=== PATIENT | female | born 2000 | race Caucasian/White ===

== ENCOUNTER 2021-10-30 12:34 | Observation (INO) | payer MEDICAID ==
[2021-10-30 13:31] LABS: Appearance CLOUDY (CLEAR); Bacteria RARE /HPF (NEGATIVE); Bilirubin NEGATIVE (NEGATIVE); Blood NEGATIVE Ery/ul (0-5); Epithelial Cells MODERATE /HPF (FEW); Glucose NEGATIVE (NEGATIVE); Ketones NEGATIVE (NEGATIVE); Leukocyte Esterase NEGATIVE (NEGATIVE); Mucus SLIGHT /HPF (NEGATIVE); Nitrite NEGATIVE (NEGATIVE); Protein,Urine Dip NEGATIVE (Negative); RBC 0-2 /HPF (0-2); Specific Gravity 1.021 (1.005-1.025); Urobilinogen NEGATIVE mg/dL (0-1)
[2021-10-30 14:49] VITALS: BP 129/61; PULSE 112
[2021-10-30 15:42] VITALS: O2SAT 97
[2021-10-30 19:33] LABS: Amphetamine,Urine NEGATIVE (NEGATIVE); Barbiturate,Urine NEGATIVE (NEGATIVE); Benzodiazepine,Urine NEGATIVE (NEGATIVE); Cocaine,Urine NEGATIVE (NEGATIVE); Methadone,Urine NEGATIVE (NEGATIVE); Opiate,Urine NEGATIVE (NEGATIVE); PCP,Urine NEGATIVE (NEGATIVE); THC,Urine NEGATIVE (NEGATIVE)
== END 2021-10-30 15:20 | disposition home or self-care (01) ==
LOC: MED SURG 12:34
PROVIDERS: ADMIT Obstetrics & Gynecology; ATTEND Obstetrics & Gynecology
DX: O24.410 Gestational diabetes mellitus in pregnancy, diet controlled (principal); Z3A.32 32 weeks gestation of pregnancy
CPT/HCPCS: 59025; 80307; 81001; G0378

== ENCOUNTER 2021-11-07 12:39 | Observation (INO) | payer MEDICAID ==
[2021-11-07 13:15] VITALS: BP 125/63; PULSE 115
[2021-11-07 13:37] LABS: Appearance SLIGHTLY CLOUDY (CLEAR); Bilirubin NEGATIVE (NEGATIVE); Blood NEGATIVE Ery/ul (0-5); Epithelial Cells MODERATE /HPF (FEW); Glucose NEGATIVE (NEGATIVE); Hyaline Casts 0-2 /LPF (0-2); Ketones NEGATIVE (NEGATIVE); Leukocyte Esterase NEGATIVE (NEGATIVE); Mucus SLIGHT /HPF (NEGATIVE); Nitrite NEGATIVE (NEGATIVE); Protein,Urine Dip NEGATIVE (Negative); RBC 0-2 /HPF (0-2); Specific Gravity 1.024 (1.005-1.025); Urobilinogen NEGATIVE mg/dL (0-1)
[2021-11-07 13:43] LABS: Bacteria NONE SEEN /HPF (NEGATIVE)
== END 2021-11-07 13:25 | disposition home or self-care (01) ==
LOC: MED SURG 12:39 → OB 12:56
PROVIDERS: ADMIT Obstetrics & Gynecology; ATTEND Obstetrics & Gynecology
DX: Z34.03 Encounter for supervision of normal first pregnancy, third trimester (principal); Z3A.33 33 weeks gestation of pregnancy
CPT/HCPCS: 59025; 81001; 82947; G0378

== ENCOUNTER 2021-11-10 13:28 | Observation (INO) | payer MEDICAID ==
[2021-11-10 13:47] VITALS: BP 124/62; PULSE 100
== END 2021-11-10 14:32 | disposition home or self-care (01) ==
LOC: OB 13:28
PROVIDERS: ADMIT Obstetrics & Gynecology; ATTEND Obstetrics & Gynecology
DX: Z34.03 Encounter for supervision of normal first pregnancy, third trimester (principal); Z3A.34 34 weeks gestation of pregnancy
CPT/HCPCS: 59025; G0378

== ENCOUNTER 2021-11-11 17:23 | Observation (INO) | payer MEDICAID, OTHER ==
[2021-11-11] MEDS ORDERED: Lactated Ringers 1,000 ML IV ONE ×2 (17:37→18:40)
[2021-11-11] MEDS ORDERED: PROCARDIA 10 MG PO ONE (18:00)
[2021-11-11] MEDS ORDERED: TYLENOL EXTRA STRENGTH 500 MG PO PRN (18:00)
[2021-11-11 19:33] LABS: ALBUMIN 3.6 g/dL (3.5-5.0); ALKALINE PHOSPHATASE 71 U/L (38-126); ANION GAP 11.5 MEQ/L (5-15); BLOOD UREA NITROGEN 7 mg/dL (7-17); CHLORIDE 104 mmol/L (98-107); Calcium 8.9 mg/dL (8.4-10.2); Carbon Dioxide 23 mmol/L (22-30); EST GLOMERULAR FILTRATION RATE > 60.0 ML/MIN; Glucose 74 mg/dL (74-106); Potassium 3.7 mmol/L (3.5-5.1); SGOT/AST 20 U/L (14-36); SGPT/ALT 14 U/L (0-35); SODIUM 135 mmol/L (137-145); Total Protein 6.7 g/dL (6.3-8.2)
[2021-11-11 19:43] LABS: Appearance SLIGHTLY CLOUDY (CLEAR); Bacteria RARE /HPF (NEGATIVE); Bilirubin NEGATIVE (NEGATIVE); Blood NEGATIVE Ery/ul (0-5); Epithelial Cells RARE /HPF (FEW); Glucose NEGATIVE (NEGATIVE); Ketones NEGATIVE (NEGATIVE); Leukocyte Esterase NEGATIVE (NEGATIVE); Mucus SLIGHT /HPF (NEGATIVE); Nitrite NEGATIVE (NEGATIVE); Protein,Urine Dip NEGATIVE (Negative); RBC 0-2 /HPF (0-2); Specific Gravity 1.017 (1.005-1.025); Urobilinogen NEGATIVE mg/dL (0-1); WBC 0-2 /HPF (0-5)
[2021-11-11 20:13] VITALS: BP 104/50; PULSE 102; O2SAT 96
[2021-11-11 20:38] LABS: Amphetamine,Urine NEGATIVE (NEGATIVE); Barbiturate,Urine NEGATIVE (NEGATIVE); Benzodiazepine,Urine NEGATIVE (NEGATIVE); Cocaine,Urine NEGATIVE (NEGATIVE); Methadone,Urine NEGATIVE (NEGATIVE); Opiate,Urine NEGATIVE (NEGATIVE); PCP,Urine NEGATIVE (NEGATIVE); THC,Urine NEGATIVE (NEGATIVE)
== END 2021-11-11 21:00 | disposition home or self-care (01) ==
LOC: OB 17:23
PROVIDERS: ADMIT Obstetrics & Gynecology; ATTEND Obstetrics & Gynecology
DX: Z34.03 Encounter for supervision of normal first pregnancy, third trimester (principal); Z3A.34 34 weeks gestation of pregnancy
CPT/HCPCS: 36415; 80053; 80307; 81001; 83036; A9270-GY

== ENCOUNTER 2021-11-15 11:02 | Observation (INO) | payer OTHER ==
[2021-11-15] MEDS ORDERED: TYLENOL 325 MG PO PRN (12:15)
[2021-11-15] MEDS ORDERED: SOTROVIMAB (EUA) 500 MG in Sodium Chloride 0.9% 100 ML BAG 100 ML IV ONE (12:15)
[2021-11-15] MEDS ORDERED: BENADRYL 50 MG/ML IV PRN (12:15)
[2021-11-15] MEDS ORDERED: Zofran 4 MG/2 ML VIAL IV PRN (12:15)
[2021-11-15] MEDS ORDERED: VENTOLIN COMMON CANISTER IH PRN (12:15)
[2021-11-15] MEDS ORDERED: Epipen 0.3 MG SQ PRN (12:15)
[2021-11-15] MEDS ORDERED: Pepcid 20 MG VIAL IV PRN (12:15)
[2021-11-15] MEDS ORDERED: Sodium Chloride 0.9% 1000 ML 1,000 ML IV PRN (12:15)
[2021-11-15] MEDS ORDERED: solu-CORTEF 100MG IV PRN (12:15)
[2021-11-15 13:23] VITALS: PULSE 110; O2SAT 100
[2021-11-15 15:30] VITALS: BP 121/58
== END 2021-11-15 14:50 | disposition home or self-care (01) ==
LOC: MED SURG 11:06
PROVIDERS: ADMIT Obstetrics & Gynecology; ATTEND Obstetrics & Gynecology
DX: O98.513 Other viral diseases complicating pregnancy, third trimester (principal); Z3A.34 34 weeks gestation of pregnancy
CPT/HCPCS: 59025; G0378; Q0247

== ENCOUNTER 2021-11-19 10:52 | Observation (INO) | payer OTHER ==
[2021-11-19 12:36] VITALS: BP 113/56; PULSE 122; O2SAT 99
== END 2021-11-19 11:55 | disposition home or self-care (01) ==
LOC: MED SURG 10:52
PROVIDERS: ADMIT Obstetrics & Gynecology; ATTEND Obstetrics & Gynecology
DX: Z34.03 Encounter for supervision of normal first pregnancy, third trimester (principal); Z3A.35 35 weeks gestation of pregnancy
CPT/HCPCS: 59025; G0378

== ENCOUNTER 2021-11-22 21:21 | Observation (INO) | payer OTHER ==
[2021-11-22 21:57] LABS: Appearance SLIGHTLY CLOUDY (CLEAR); Bilirubin NEGATIVE (NEGATIVE); Blood NEGATIVE Ery/ul (0-5); Epithelial Cells RARE /HPF (FEW); Glucose NEGATIVE (NEGATIVE); Ketones NEGATIVE (NEGATIVE); Leukocyte Esterase NEGATIVE (NEGATIVE); Mucus SLIGHT /HPF (NEGATIVE); Nitrite NEGATIVE (NEGATIVE); Protein,Urine Dip NEGATIVE (Negative); RBC 0-2 /HPF (0-2); Specific Gravity 1.027 (1.005-1.025); Urobilinogen 2 mg/dL (0-1); WBC 0-2 /HPF (0-5)
[2021-11-22 22:03] LABS: Bacteria NONE SEEN /HPF (NEGATIVE)
[2021-11-22 22:11] LABS: Amphetamine,Urine NEGATIVE (NEGATIVE); Barbiturate,Urine NEGATIVE (NEGATIVE); Benzodiazepine,Urine NEGATIVE (NEGATIVE); Cocaine,Urine NEGATIVE (NEGATIVE); Methadone,Urine NEGATIVE (NEGATIVE); Opiate,Urine NEGATIVE (NEGATIVE); PCP,Urine NEGATIVE (NEGATIVE); THC,Urine NEGATIVE (NEGATIVE)
[2021-11-22] MEDS ORDERED: Lactated Ringers 1,000 ML IV ONE ×2 (22:11→22:51)
[2021-11-22] MEDS ORDERED: MORPHINE SULFATE 2 MG INJ IV PRN (23:55)
[2021-11-23] MEDS ORDERED: Lactated Ringers 1,000 ML IV SCH (00:30)
[2021-11-23 03:13] VITALS: O2SAT 96
[2021-11-23 06:19] VITALS: BP 128/55; PULSE 87
== END 2021-11-23 06:10 | disposition home or self-care (01) ==
LOC: OB 21:21
PROVIDERS: ADMIT Obstetrics & Gynecology; ATTEND Obstetrics & Gynecology
DX: Z34.03 Encounter for supervision of normal first pregnancy, third trimester (principal); Z3A.36 36 weeks gestation of pregnancy
CPT/HCPCS: 59025; 80307; 81001; 84112; G0378; J2270

== ENCOUNTER 2021-11-24 17:46 | Observation (INO) | payer OTHER ==
[2021-11-24 19:11] VITALS: BP 120/67; PULSE 91
== END 2021-11-24 19:35 | disposition home or self-care (01) ==
LOC: WHC 17:46 → OB 18:19
PROVIDERS: ADMIT Obstetrics & Gynecology; ATTEND Obstetrics & Gynecology
DX: Z34.03 Encounter for supervision of normal first pregnancy, third trimester (principal); Z3A.36 36 weeks gestation of pregnancy
CPT/HCPCS: 59025; 87081; G0378

== ENCOUNTER 2021-11-28 15:37 | Observation (INO) | payer OTHER ==
[2021-11-28] MEDS ORDERED: MORPHINE SULFATE 2 MG INJ IV PRN (16:04)
[2021-11-28] MEDS ORDERED: Lactated Ringers 500 ML IV ONE (16:05)
[2021-11-28 16:29] VITALS: BP 119/58; PULSE 100
[2021-11-28] MEDS ORDERED: Lactated Ringers 1,000 ML IV SCH (17:30)
== END 2021-11-28 18:35 | disposition home or self-care (01) ==
LOC: OB 15:37
PROVIDERS: ADMIT Obstetrics & Gynecology; ATTEND Obstetrics & Gynecology
DX: Z34.03 Encounter for supervision of normal first pregnancy, third trimester (principal); Z3A.36 36 weeks gestation of pregnancy
CPT/HCPCS: G0378 ×2; J2270

== ENCOUNTER 2021-12-01 12:00 | Observation (INO) | payer OTHER ==
[2021-12-01 13:48] VITALS: BP 116/57; PULSE 95
[2021-12-01 14:00] LABS: Appearance CLEAR (CLEAR); Bilirubin NEGATIVE (NEGATIVE); Blood NEGATIVE Ery/ul (0-5); Glucose NEGATIVE (NEGATIVE); Ketones NEGATIVE (NEGATIVE); Leukocyte Esterase NEGATIVE (NEGATIVE); Nitrite NEGATIVE (NEGATIVE); Protein,Urine Dip NEGATIVE (Negative); Specific Gravity 1.011 (1.005-1.025); Urobilinogen NEGATIVE mg/dL (0-1)
== END 2021-12-01 13:55 | disposition home or self-care (01) ==
LOC: WHC 12:00 → OB 13:14
PROVIDERS: ADMIT Obstetrics & Gynecology; ATTEND Obstetrics & Gynecology
DX: Z34.03 Encounter for supervision of normal first pregnancy, third trimester (principal); Z3A.37 37 weeks gestation of pregnancy
CPT/HCPCS: 59025; 81003; G0378

== ENCOUNTER 2021-12-08 05:01 | Inpatient (IN) | payer OTHER ==
[~2021-12-08 05:01] MED LIST: Zofran 4 MG/2 ML VIAL IV PRN
[2021-12-08 06:01] LABS: Absolute Neutrophil Ct (ANC) 4.94 (1.4-6.9); Basophil (Absolute #) 0.02 (0-0.4); Eosinophil % 2.1 % (0.00-5.0); Eosinophil (Absolute #) 0.17 (0-0.5); Hematocrit 36.7 % (35-47); Hemoglobin 11.9 gm/dl (12.0-16.0); Lymphocyte (Absolute #) 2.42 (1.0-4.6); Lymphocytes % 29.7 % (24.0-44.0); Mean Cell Volume 85.9 fl (78-100); Mean Corpuscular Hemoglobin 27.9 pg (26-32); Mean Corpuscular Hgb Concent. 32.4 g/dl (32-36); Mean Platelet Volume 10.5 fl (7.5-11.0); Monocyte (Absolute #) 0.59 (0.0-1.3); Monocytes % 7.2 % (0.0-12.0); Neutrophil % 60.8 % (36.0-66.0); Platelet Count 208 K/mm3 (150-450); Red Blood Count 4.27 M/mm3 (4.1-5.4); Red Cell Distribution Width 14.7 % (11.5-14.0); White Blood Count 8.1 K/mm3 (4.0-10.5)
[2021-12-08 06:24] LABS: Amphetamine,Urine NEGATIVE (NEGATIVE); Barbiturate,Urine NEGATIVE (NEGATIVE); Benzodiazepine,Urine NEGATIVE (NEGATIVE); Cocaine,Urine NEGATIVE (NEGATIVE); Methadone,Urine NEGATIVE (NEGATIVE); Opiate,Urine NEGATIVE (NEGATIVE); PCP,Urine NEGATIVE (NEGATIVE); THC,Urine NEGATIVE (NEGATIVE)
[2021-12-08 06:27] LABS: COVID AG -BINAX NOW RAPID TEST NEGATIVE (NEGATIVE)
[2021-12-08 06:46] LABS: ABO TYPING A; Antibody Screen NEGATIVE (NEGATIVE); RH TYPING POSITIVE
[2021-12-08] MEDS ORDERED: FENTANYL 2 MCG-BUPIV 0.125%-NS 250 ML Epidur 250 ML EPIDURAL SCH (13:00)
[2021-12-08] MEDS ORDERED: Ephedrine Sulfate 50 MG/ML IV PRN (13:00)
[2021-12-08] MEDS ORDERED: Lactated Ringers 1,000 ML IV ONE (13:00)
[2021-12-08] MEDS ORDERED: OMNIPEN 2 GM*** 2 G in Sodium Chloride 100ML MINI-BAG PLUS 100 ML IV ONE (18:00)
[2021-12-08] MEDS ORDERED: STADOL 2 MG IV PRN (22:00)
[2021-12-08] MEDS ORDERED: OMNIPEN 1 GM*** 1 GM in Sodium Chloride 100ML MINI-BAG PLUS 100 ML IV SCH (22:00)
[2021-12-09] MEDS ORDERED: XYLOCAINE 1% HCL 20 ML MDV IJ PRN (05:00)
[2021-12-09] MEDS ORDERED: PITOCIN 30 UNITS/ LR 500 ML 30 UNITS/500 ML PLAST..BAG IV SCH ×2 (05:00→08:00)
[2021-12-09] MEDS: TYLENOL EXTRA STRENGTH 500 MG PO PRN (05:41)
[2021-12-09] MEDS: Lactated Ringers 1,000 ML IV SCH ×2 (06:44→08:38)
[2021-12-09] MEDS ORDERED: Mylicon 80MG PO PRN (08:08)
[2021-12-09] MEDS ORDERED: CLARITIN 10 MG PO PRN (08:08)
[2021-12-09] MEDS ORDERED: PERCOCET TABLET 5/325MG PO PRN (08:08)
[2021-12-09] MEDS ORDERED: MORPHINE SULFATE 2 MG INJ IV PRN (08:08)
[2021-12-09] MEDS ORDERED: LANSINOH 40 GM TOP PRN (08:08)
[2021-12-09] MEDS ORDERED: HOLD NARCOTIC ANALGESICS AND SEDATIVES X24 HR MC PRN (08:08)
[2021-12-09] MEDS ORDERED: BENADRYL 50 MG/ML IV PRN (08:08)
[2021-12-09] MEDS ORDERED: Reglan 10 MG/2 ML IV SCH (08:15)
[2021-12-09] MEDS ORDERED: Pepcid 20 MG VIAL IV SCH (08:15)
[2021-12-09] MEDS ORDERED: SOD CITRATE-CITRIC ACID SOLN PO SCH (08:15)
[2021-12-09] MEDS ORDERED: CEFAZOLIN 2 GM-D5W BAG** 2 GM/50 ML ML IV SCH (08:30)
[2021-12-09] MEDS ORDERED: Pitocin 10 UNITS/ML ONE (08:47)
[2021-12-09] MEDS ORDERED: PHENYLEPHRINE HCL ONE (08:48)
[2021-12-09] MEDS ORDERED: XYLOCAINE 2%/Epi 1:200000 20ML VIAL MPF ONE (08:48)
[2021-12-09] MEDS ORDERED: Ephedrine Sulfate 50 MG/ML ONE (08:48)
[2021-12-09] MEDS ORDERED: Astramorph-Pf 5 MG/10 ML ONE (08:48)
[2021-12-09] MEDS ORDERED: SUBLIMAZE 100 MCG/2 ML ONE (08:48)
[2021-12-09 09:02] LABS: INR 1.02 (0.8-3.0)
[2021-12-09 09:05] LABS: PTT 29.7 SECONDS (25.1-36.5)
[2021-12-09] MEDS ORDERED: KEFZOL 1 GM ONE (09:05)
[2021-12-09] MEDS ORDERED: Versed 2 MG/2 ML Injection ONE (09:22)
[2021-12-09] MEDS ORDERED: Decadron 4 MG INJ ONE (09:24)
[2021-12-09] MEDS ORDERED: Naropin 0.5% 30 ML VIAL ONE (09:25)
[2021-12-09] MEDS ORDERED: EPINEPHRINE 1MG/ML AMP ONE (09:25)
[2021-12-09] MEDS ORDERED: DEMEROL 50 MG ONE (10:01)
[2021-12-09] MEDS ORDERED: Narcan 0.4 MG/ML IV PRN (11:10)
[2021-12-09] MEDS ORDERED: Nubain 10 MG/ML IV PRN (11:10)
[2021-12-09] MEDS ORDERED: DEMEROL 50 MG IV PRN (11:10)
[2021-12-09 13:24] LABS: HBsAg Screen Negative (Negative)
--- NOTE | 2021-12-09 13:26 | OP ---
SURGERY DATE/TIME: 12/09/2021 0853 PREOPERATIVE DIAGNOSIS: Intrauterine at 38 weeks and 1 day gestation with history of diabetes mellitus type II, chronic hypertension and off of medication and arrest of dilatation with known nuchal cord. POSTOPERATIVE DIAGNOSIS: Intrauterine at 38 weeks and 1 day gestation with history of diabetes mellitus type II, chronic hypertension and off of medication and arrest of dilatation with nuchal cord x2. PROCEDURE: Primary section, low flap transverse uterine incision, Pfannenstiel skin incision. SURGEON: Rigo Ledbetter D.O. CIGARETTE STAMPER: Giles Duenas, technician plant and maintenance. ANESTHESIA: Epidural. ESTIMATED BLOOD LOSS: 600 cc. COMPLICATIONS: None. INDICATIONS: The risks, benefits, indications and alternatives of the procedure were reviewed with the patient prior to procedure. The patient understood the risk of infection, bleeding, bowel injury, bladder injury, ureteral injury, uterine perforation, pelvic infection and thromboembolic disorder associated with the surgery and desires to have this surgery as a possible means to alleviate her current medical condition. DESCRIPTION OF PROCEDURE AND FINDINGS: At this point, the patient is taken to the operating room where her epidural anesthesia was found to be adequate. She was then prepared and draped in normal sterile fashion in the dorsal supine position with a leftward tilt. A Pfannenstiel skin incision is then made with a scalpel and carried through to the underlying layer of the fascia with a Bovie. The fascia was then incised in the midline and the incision extended laterally with Lara scissors. The superior aspect of the fascial incision was then grasped Reina clamps elevated and the underlying rectus muscles dissected off bluntly. Attention is then turned to the inferior aspect of this incision, which in similar fashion was grasped, tented up with Reina clamps and the rectus muscles were dissected off bluntly. The rectus muscles were then at the midline, the peritoneum identified, tented up and entered sharply with Metzenbaum scissors. The peritoneal incision was then extended superiorly and inferiorly with good visualization of the bladder. The bladder blade was then inserted and the vesicouterine peritoneum identified, grasped with a pickup and entered sharply with Metzenbaum scissors. This incision was then extended laterally and bladder flap created digitally. The bladder blade was then reinserted and the lower uterine segment incised in transverse fashion with a scalpel. The uterine incision was then extended laterally with bandage scissors. The bladder blade was then removed and the infant's head was delivered atraumatically with a known nuchal cord x2, which was reduced. The nose and mouth were suctioned with suction bulb and the cord clamped and cut. The was then handed off to the awaiting nurses. The placenta was then removed manually. The uterus exteriorized and cleared of all clots and debris. The uterine incision was repaired with 1-0 chromic in a running locked fashion. A second layer of the same suture was used to obtain excellent hemostasis. The uterus is then returned to the abdomen. The gutters were cleared of clots and the peritoneal muscles closed in interrupted fashion using 2-0 chromic suture. The fascia was re-approximated with 0 Vicryl in running fashion. The subcutaneous layer was closed with 3-0 Vicryl and the skin was closed with absorbable kelly called INSORB. The patient tolerated the procedure well. Sponge, lap, needle and instrument counts were correct x2. The patient was then taken to the recovery room in stable condition. The patient delivered a live baby girl at 0916 hours. The weight of the baby was 7 pounds 9 ounces. 's were 9 at 1 minute and 9 at 5 minutes.
--- NOTE | 2021-12-09 13:48 | PCM.HP ---
History of Present Illness - Chief Complaint Chief Complaint: Post Op History of Present Illness: is a 21 year old female. 21 yo iup 38 wks gestation admitted on december 08 for induction secondary to chronic htn not on medication and type 2 dm on metformin bid as was advised by m. has had fair glucose monitoring and currently was taking metformin 1000mg bid with fair control. recent sono done by [facility] indicating baby to be 8.6 pounds. states irregular contx and denies srom. Medications & Allergies Home Medications: Home Medication List Aspirin EC 81 mg [Ecotrin 81 mg] 81 mg PO DAILY 10/30/21 [History Confirmed 12/08/21] Folic Acid 0.8 mg PO DAILY 10/30/21 [History Confirmed 12/08/21] Metformin HCl 500 mg [Glucophage 500 MG] 500 mg PO QID 10/30/21 [History Confirmed 12/08/21] Vit,Calc76/Iron/Folic [Prenatabs Rx Tablet] 1 each PO DAILY 10/30/21 [History Confirmed 12/08/21] Allergies/Adverse Reactions: Allergies Allergy/AdvReac Type Severity Reaction Status Date / Time acetaminophen [From Lortab] Allergy Verified 12/01/21 14:03 hydrocodone bitartrate Allergy Itching Verified 12/08/21 05:15 [From Lortab] - Past Medical History Past Medical History: Yes Neurological History: No Pertinent History ENT History: No Pertinent History Cardiac History: No Pertinent History Respiratory History: No Pertinent History Endocrine Medical History: Diabetes Type II Musculoskelatal History: No Pertinent History GI Medical History: No Pertinent History History: No Pertinent History Pyscho-Social History: Anxiety, Bipolar, Depression - Female History Expected Date of Delivery: 12/22/21 - Past Surgical History Past Surgical History: Yes Neuro Surgical History: No Pertinent History Cardiac History: No Pertinent History Respiratory Surgery: No Pertinent History GI Surgical History: No Pertinent History Genitourinary Surgical Hx: No Pertinent History Musculskeletal Surgical Hx: No Pertinent History Female Surgical History: No Pertinent History Other Surgical History: rt upper thigh, MRSA in wound 2020 - Social History Smoking Status: Never smoker Exposure to second hand smoke: No Alcohol: None Drug Use: none - Physical Exam Vital Signs: Vital Signs - 24 hr Temp Pulse Resp BP Pulse Ox 12/09/21 10:20 112 H 22 141/70 100 12/09/21 08:38 98.2 F 84 20 101/54 12/09/21 08:21 97.7 F 84 20 101/54 12/09/21 06:38 97.7 F 72 20 108/56 12/09/21 06:25 97.7 F 72 20 108/56 12/09/21 00:30 98.3 F 74 18 129/64 12/08/21 20:00 99.1 F 75 16 114/62 97 12/08/21 18:51 78 18 119/58 12/08/21 15:00 97.3 F 91 H 20 127/61 General Appearance: no apparent distress Neurologic Exam: alert Eye Exam: eyes nml inspection, other (normal) Pelvic Exam: other (/3/vtx/intact) Results - Labs Lab/Micro Results: Lab Results-Last 24 Hours 12/08/21 12/08/21 12/08/21 Range/Units 05:45 17:15 23:01 PT (9.4-12.5) SECONDS INR (0.8-3.0) APTT (25.1-36.5) SECONDS POC Glucometer 135 H (74 to 106) mg/dL POC Amnio Swab Test Negative Hep Bs Antigen Negative (Negative) 12/09/21 12/09/21 Range/Units 08:36 12:02 PT 12.0 (9.4-12.5) SECONDS INR 1.02 (0.8-3.0) APTT 29.7 (25.1-36.5) SECONDS POC Glucometer 110 H (74 to 106) mg/dL POC Amnio Swab Test Hep Bs Antigen (Negative) Accuchecks Date 12/08/21 Time 23:00 Assessment/Plan (1) Diabetes mellitus Current Visit: Yes Status: Acute Qualifiers: Diabetes mellitus type: type 2 Diabetes mellitus complication status: without complication Code(s): E11.9 - TYPE 2 DIABETES MELLITUS WITHOUT COMPLICATIONS (2) Chronic hypertension Current Visit: Yes Status: Acute Code(s): I10 - ESSENTIAL (PRIMARY) HYPERTENSION (3) Nuchal cord Current Visit: Yes Status: Acute Code(s): TAU1690 -
[2021-12-09] MEDS: Dextrose 5%-Lr IV Solution 1000 ML 1,000 ML IV SCH ×2 (14:23→22:55)
[2021-12-09] MEDS ORDERED: BUPIVACAINE IV SCH (14:30)
[2021-12-09] MEDS ORDERED: FENTANYL IV SCH (14:30)
[2021-12-09] MEDS ORDERED: [UNRECOGNIZED DRUG - OTHER] IV SCH (14:30)
[2021-12-09 15:36] LABS: Appearance SLIGHTLY CLOUDY (CLEAR); Bacteria RARE /HPF (NEGATIVE); Bilirubin NEGATIVE (NEGATIVE); Blood NEGATIVE Ery/ul (0-5); Epithelial Cells RARE /HPF (FEW); Glucose NEGATIVE (NEGATIVE); Ketones TRACE (NEGATIVE); Leukocyte Esterase NEGATIVE (NEGATIVE); Mucus SLIGHT /HPF (NEGATIVE); Nitrite NEGATIVE (NEGATIVE); Protein,Urine Dip 100 (Negative); Specific Gravity 1.038 (1.005-1.025); Urobilinogen 2 mg/dL (0-1); WBC 0-2 /HPF (0-5)
[2021-12-09] MEDS: KEFZOL 1 GM** 3 G in Sodium Chloride 0.9% 50 ML 50 ML IV SCH (16:19)
[2021-12-09] MEDS: Glucophage 500 MG PO SCH (17:36)
[2021-12-09] MEDS: MOTRIN 400 MG PO PRN (21:31)
[2021-12-10] MEDS: KEFZOL 1 GM** 3 G in Sodium Chloride 0.9% 50 ML 50 ML IV SCH (00:18)
[2021-12-10] MEDS: FOLATE 1 MG PO SCH ×2 (00:32→10:43)
[2021-12-10] MEDS: THERAGRAN MULTIVITAMIN PO SCH ×2 (00:32→10:42)
[2021-12-10 06:33] LABS: Basophil (Absolute #) 0.02 (0-0.4); Eosinophil % 0.5 % (0.00-5.0); Eosinophil (Absolute #) 0.05 (0-0.5); Hematocrit 29.9 % (35-47); Hemoglobin 9.7 gm/dl (12.0-16.0); Lymphocyte (Absolute #) 2.71 (1.0-4.6); Lymphocytes % 26.1 % (24.0-44.0); Mean Cell Volume 87.2 fl (78-100); Mean Corpuscular Hemoglobin 28.3 pg (26-32); Mean Corpuscular Hgb Concent. 32.4 g/dl (32-36); Mean Platelet Volume 10.1 fl (7.5-11.0); Monocyte (Absolute #) 0.91 (0.0-1.3); Monocytes % 8.8 % (0.0-12.0); Neutrophil % 64.4 % (36.0-66.0); Platelet Count 188 K/mm3 (150-450); Red Blood Count 3.43 M/mm3 (4.1-5.4); Red Cell Distribution Width 14.5 % (11.5-14.0); White Blood Count 10.4 K/mm3 (4.0-10.5)
[2021-12-10] MEDS: MOTRIN 400 MG PO PRN ×3 (07:35→20:33)
[2021-12-10] MEDS ORDERED: ENOXAPARIN SODIUM SQ ONE (08:00)
[2021-12-10] MEDS ORDERED: FOLIC PO SCH (10:00)
[2021-12-10] MEDS ORDERED: IRON PO SCH (10:00)
[2021-12-10] MEDS ORDERED: PRENATAL VIT CALC76 PO SCH (10:00)
[2021-12-10] MEDS ORDERED: FOLIC ACID 0.8 MG PO SCH (10:00)
[2021-12-10] MEDS ORDERED: ECOTRIN 81 MG PO SCH (10:00)
[2021-12-10] MEDS ORDERED: FERREX 150 PO SCH (10:00)
--- NOTE | 2021-12-10 10:07 | PCM.NOTE ---
Date and Time: 12/10/21 1005 Subjective Assessment: pod 1 sp csection pt resting in the chair doing well ambulating and tolerating diet vss afebrile abd; soft incision with dressing intact with minimal soiling uterus; firm lochia; mild hgb; 9 urine culture; gram negative however remaining culture pending a/p sp csection pod 1 with uti will give rocephin 500mg im x 1 since iv out will start macrobid bid 7 days anticipate discharge home tomorrow encouraged ambulation OBJECTIVE DATA Vital Signs: Vital Signs - 24 hr Temp Pulse Resp BP Pulse Ox 12/10/21 06:00 95 12/10/21 05:00 94 L 12/10/21 04:00 96 12/10/21 02:00 94 L 12/10/21 01:00 98.2 F 90 20 115/53 94 L 12/10/21 00:00 95 12/09/21 23:00 96 12/09/21 22:00 95 12/09/21 21:00 96 12/09/21 20:00 99 H 20 117/56 96 12/09/21 18:59 97 12/09/21 18:00 97 12/09/21 17:00 98 12/09/21 16:00 90 124/58 97 12/09/21 15:00 96 12/09/21 14:00 95 H 96 12/09/21 13:00 98 12/09/21 12:40 100 H 18 113/58 96 12/09/21 12:00 97 12/09/21 11:10 109 H 107/71 97 12/09/21 11:00 96 12/09/21 10:55 61 20 104/52 96 12/09/21 10:35 98.1 F 106 H 22 109/56 97 12/09/21 10:20 112 H 22 141/70 100 Pain Assessment - Last Documented Pain Intensity [Lower Anterior 3 ] Pain Intensity 5 Pain Scale Used 0-10 Pain Scale Intake and Output: Intake & Output 12/07/21 12/08/21 12/09/21 12/10/21 11:59 11:59 11:59 11:59 Intake Total 200 3621 Output Total 1950 Balance 200 1671 Weight 123.377 kg 123.377 kg Lab Results: Lab Results-Last 24 Hours 12/08/21 12/09/21 12/09/21 Range/Units 05:45 07:30 12:02 WBC (4.0-10.5) K/mm3 RBC (4.1-5.4) M/mm3 Hgb (12.0-16.0) gm/dl Hct (35-47) % MCV (78-100) fl MCH (26-32) pg MCHC (32-36) g/dl RDW (11.5-14.0) % Plt Count (150-450) K/mm3 MPV (7.5-11.0) fl Gran % (36.0-66.0) % Eos # (Auto) (0-0.5) Absolute Lymphs (auto) (1.0-4.6) Absolute Monos (auto) (0.0-1.3) Lymphocytes % (24.0-44.0) % Monocytes % (0.0-12.0) % Eosinophils % (0.00-5.0) % Basophils % (0.0-0.4) % Absolute Granulocytes (1.4-6.9) Basophils # (0-0.4) POC Glucometer 110 H (74 to 106) mg/dL Urine Color CAROL (YELLOW) Urine Appearance SLIGHTLY CLOUDY (CLEAR) Urine pH 6.0 (5-6) Ur Specific [place] 1.038 (1.005-1.025) Urine Protein 100 (Negative) Urine Ketones TRACE (NEGATIVE) Urine Blood NEGATIVE (0-5) Maxim/ul Urine Nitrite NEGATIVE (NEGATIVE) Urine Bilirubin NEGATIVE (NEGATIVE) Urine Urobilinogen 2 (0-1) mg/dL Ur Leukocyte Esterase NEGATIVE (NEGATIVE) Urine WBC (Auto) 0-2 (0-5) /HPF Urine RBC (Auto) 11-15 (0-2) /HPF U Epithel Cells (Auto) RARE (FEW) /HPF Urine Bacteria (Auto) RARE (NEGATIVE) /HPF Urine Mucus (Auto) SLIGHT (NEGATIVE) /HPF Urine Glucose NEGATIVE (NEGATIVE) mg/dL Hep Bs Antigen Negative (Negative) 12/09/21 12/10/21 Range/Units 17:34 06:25 WBC 10.4 (4.0-10.5) K/mm3 RBC 3.43 L (4.1-5.4) M/mm3 Hgb 9.7 L (12.0-16.0) gm/dl Hct 29.9 L (35-47) % MCV 87.2 (78-100) fl MCH 28.3 (26-32) pg MCHC 32.4 (32-36) g/dl RDW 14.5 H (11.5-14.0) % Plt Count 188 (150-450) K/mm3 MPV 10.1 (7.5-11.0) fl Gran % 64.4 (36.0-66.0) % Eos # (Auto) 0.05 (0-0.5) Absolute Lymphs (auto) 2.71 (1.0-4.6) Absolute Monos (auto) 0.91 (0.0-1.3) Lymphocytes % 26.1 (24.0-44.0) % Monocytes % 8.8 (0.0-12.0) % Eosinophils % 0.5 (0.00-5.0) % Basophils % 0.2 (0.0-0.4) % Absolute Granulocytes 6.70 (1.4-6.9) Basophils # 0.02 (0-0.4) POC Glucometer 128 H (74 to 106) mg/dL Urine Color (YELLOW) Urine Appearance (CLEAR) Urine pH (5-6) Ur Specific [place] (1.005-1.025) Urine Protein (Negative) Urine Ketones (NEGATIVE) Urine Blood (0-5) Maxim/ul Urine Nitrite (NEGATIVE) Urine Bilirubin (NEGATIVE) Urine Urobilinogen (0-1) mg/dL Ur Leukocyte Esterase (NEGATIVE) Urine WBC (Auto) (0-5) /HPF Urine RBC (Auto) (0-2) /HPF U Epithel Cells (Auto) (FEW) /HPF Urine Bacteria (Auto) (NEGATIVE) /HPF Urine Mucus (Auto) (NEGATIVE) /HPF Urine Glucose (NEGATIVE) mg/dL Hep Bs Antigen (Negative) Assessment/Plan (1) Diabetes mellitus Current Visit: Yes Status: Acute Qualifiers: Diabetes mellitus type: type 2 Diabetes mellitus complication status: w [facility] complication Code(s): E11.9 - TYPE 2 DIABETES MELLITUS WITHOUT COMPLICATIONS (2) Chronic hypertension Current Visit: Yes Status: Acute Code(s): I10 - ESSENTIAL (PRIMARY) HYPERTENSION (3) Nuchal cord Current Visit: Yes Status: Acute Code(s): FKA5376 -
[2021-12-10] MEDS ORDERED: XYLOCAINE 1% HCL 20 ML MDV IJ PRN (10:11)
[2021-12-10] MEDS ORDERED: Rocephin 500 MG INJ IM ONE (10:30)
[2021-12-10] MEDS: Glucophage 500 MG PO SCH ×2 (10:42→19:03)
[2021-12-10] MEDS: Colace 100 MG PO SCH ×2 (10:43→21:00)
[2021-12-10] MEDS: TYLENOL EXTRA STRENGTH 500 MG PO PRN ×2 (15:13→23:42)
[2021-12-10] MEDS ORDERED: NORCO 5/325 MG PO PRN (18:13)
[2021-12-10] MEDS: Macrobid 100MG Capsule PO SCH (19:02)
[2021-12-11] MEDS: MOTRIN 400 MG PO PRN (02:27)
[2021-12-11 02:44] VITALS: O2SAT 98
[2021-12-11] MEDS: TYLENOL EXTRA STRENGTH 500 MG PO PRN (05:31)
--- NOTE | 2021-12-11 06:27 | PCM.NOTE ---
Date and Time: 12/11/21 0625 Subjective Assessment: pod 2 sp csection pt resting in bed and doing well able to ambulate and tolerate diet. desires medication for depression. vss afebrile abd; soft incision with dressing intact with no soiling uterus; firm lochia; mild a/p sp csection pod 2 secondary arrest of dilitation dc home today fu office 2wks OBJECTIVE DATA Vital Signs: Vital Signs - 24 hr Temp Pulse Resp BP Pulse Ox 12/11/21 02:30 97.8 F 81 20 114/51 98 12/10/21 20:00 98.1 F 89 22 104/54 97 12/10/21 12:00 18 12/10/21 08:00 98.2 F 96 H 20 114/56 95 Pain Assessment - Last Documented Pain Intensity [Lower Anterior 5 ] Pain Intensity 7 Pain Scale Used 0-10 Pain Scale Intake and Output: Intake & Output 12/08/21 12/09/21 12/10/21 12/11/21 11:59 11:59 11:59 11:59 Intake Total 200 3621 1040 Output Total 1950 Balance 200 1671 1040 Weight 123.377 kg 123.377 kg Lab Results: Lab Results-Last 24 Hours 12/10/21 Range/Units 06:25 WBC 10.4 (4.0-10.5) K/mm3 RBC 3.43 L (4.1-5.4) M/mm3 Hgb 9.7 L (12.0-16.0) gm/dl Hct 29.9 L (35-47) % MCV 87.2 (78-100) fl MCH 28.3 (26-32) pg MCHC 32.4 (32-36) g/dl RDW 14.5 H (11.5-14.0) % Plt Count 188 (150-450) K/mm3 MPV 10.1 (7.5-11.0) fl Gran % 64.4 (36.0-66.0) % Eos # (Auto) 0.05 (0-0.5) Absolute Lymphs (auto) 2.71 (1.0-4.6) Absolute Monos (auto) 0.91 (0.0-1.3) Lymphocytes % 26.1 (24.0-44.0) % Monocytes % 8.8 (0.0-12.0) % Eosinophils % 0.5 (0.00-5.0) % Basophils % 0.2 (0.0-0.4) % Absolute Granulocytes 6.70 (1.4-6.9) Basophils # 0.02 (0-0.4) Assessment/Plan (1) Diabetes mellitus Current Visit: Yes Status: Acute Qualifiers: Diabetes mellitus type: type 2 Diabetes mellitus complication status: without complication Code(s): E11.9 - TYPE 2 DIABETES MELLITUS WITHOUT COMPLICATIONS (2) Chronic hypertension Current Visit: Yes Status: Acute Code(s): I10 - ESSENTIAL (PRIMARY) HYPERTENSION (3) Nuchal cord Current Visit: Yes Status: Acute Code(s): HUK0266 - (4) S/P primary low transverse Current Visit: Yes Status: Acute Code(s): Z98.891 - HISTORY OF UTERINE SCAR FROM PREVIOUS SURGERY
--- NOTE | 2021-12-11 06:34 | PCM.DS ---
Discharge Summary Date of Admission: 12/08/21 07:30 Admitting Physician: CARLITOS MASON DO Consults: Consults on Case 12/08/21 05:00 Notify Anesthesia Provider PRN 12/08/21 14:42 Navigation ONCE Primary Care Provider: CARLITOS MASON DO Allergies Allergies acetaminophen [From Lortab] Allergy (Verified 12/01/21 14:03) hydrocodone bitartrate [From Lortab] Allergy (Verified 12/10/21 18:24) Itching Pt states she had Lortab when she was young, it caused her to vomit x 1 and have a bloody nose. Pt demanded [place] "because her pain was so bad" Hospital Summary - Hospital Course Hospital Course: pt was admitted on december 08 for cytotec induction secondary to chronic htn not on medicatin and type 2 diabetes controlled with metformin. pt had 6 doses of cytotec with minimal cervical change and subsequently underwent primary csection without complication on december 09. during postop period did well and now stable for discharge. pt had stable hgb at 9 and at this time was advised to fu in office in 2 wks. pt given zoloft for depression and did not want any narcotic for pain management. pt will continue with ibuprofen for pain management. pt at this time stable for discharge and will also go home on macrobid for uti. pt had been given rocephin for uti. - Vitals & Intake/Output Vital Signs: Vital Signs Temperature 97.8 F 12/11/21 02:30 Pulse Rate 81 12/11/21 02:30 Respiratory Rate 20 12/11/21 02:30 Blood Pressure 114/51 12/11/21 02:30 O2 Sat by Pulse Oximetry 98 12/11/21 02:30 Intake & Output: Intake & Output 12/08/21 12/09/21 12/10/21 12/11/21 11:59 11:59 11:59 11:59 Intake Total 200 3621 1040 Output Total 1950 Balance 200 1671 1040 Weight 123.377 kg 123.377 kg - Lab Result Diagrams: 12/10/21 06:25 Lab Results-Last 24 Hrs: Lab Results-Last 24 Hours 12/10/21 Range/Units 06:25 WBC 10.4 (4.0-10.5) K/mm3 RBC 3.43 L (4.1-5.4) M/mm3 Hgb 9.7 L (12.0-16.0) gm/dl Hct 29.9 L (35-47) % MCV 87.2 (78-100) fl MCH 28.3 (26-32) pg MCHC 32.4 (32-36) g/dl RDW 14.5 H (11.5-14.0) % Plt Count 188 (150-450) K/mm3 MPV 10.1 (7.5-11.0) fl Gran % 64.4 (36.0-66.0) % Eos # (Auto) 0.05 (0-0.5) Absolute Lymphs (auto) 2.71 (1.0-4.6) Absolute Monos (auto) 0.91 (0.0-1.3) Lymphocytes % 26.1 (24.0-44.0) % Monocytes % 8.8 (0.0-12.0) % Eosinophils % 0.5 (0.00-5.0) % Basophils % 0.2 (0.0-0.4) % Absolute Granulocytes 6.70 (1.4-6.9) Basophils # 0.02 (0-0.4) Micro Results-Entire Visit: Microbiology 12/09/21 07:30 Urine Culture - Preliminary Catherized GRAM NEGATIVE ID AND SENSITIVITY PENDING - Procedures and Test Procedures and Tests throughout Hospitalization: Therapy Orders & Screens 12/09/21 12:54 Standby STAT Comment: Diagnosis: Post Op Final Diagnosis/Problem List - Final Discharge Diagnosis/Problem (1) Diabetes mellitus Current Visit: Yes Status: Acute Code(s): E11.9 - TYPE 2 DIABETES MELLITUS WITHOUT COMPLICATIONS (2) Chronic hypertension Current Visit: Yes Status: Acute Code(s): I10 - ESSENTIAL (PRIMARY) HYPERTENSION (3) Nuchal cord Current Visit: Yes Status: Acute Code(s): IBV9039 - (4) S/P primary low transverse Current Visit: Yes Status: Acute Code(s): Z98.891 - HISTORY OF UTERINE SCAR FROM PREVIOUS SURGERY - Discharge Disposition: Home, Self-Care Condition: Stable Prescriptions: New Nitrofurantoin Macro 100 mg [Macrobid 100MG Capsule] 100 mg PO BIDWM 5 Days #10 Ibuprofen 600 mg PO Q6-8HPRN PRN #60 tablet PRN Reason: Moderate Pain Sertraline HCl 50 mg [Zoloft 50 mg Tablet] 50 mg PO DAILY #30 tab Metformin HCl 500 mg [Glucophage 500 MG] 500 mg PO DAILY #30 tablet No Action Metformin HCl 500 mg [Glucophage 500 MG] 500 mg PO QID Aspirin EC 81 mg [Ecotrin 81 mg] 81 mg PO DAILY Vit,Calc76/Iron/Folic [Prenatabs Rx Tablet] 1 each PO DAILY Folic Acid 0.8 mg PO DAILY Additional Instructions: Patient needs script for PO Macrobid 100 mg for total of 7 days Follow up with: CARLITOS MASON DO [Primary Care Provider] - 2 weeks (no heavy lifting keep incision clean and dry should fu in office in 2 wks)
[2021-12-11] MEDS: Glucophage 500 MG PO SCH (09:13)
[2021-12-11] MEDS: Macrobid 100MG Capsule PO SCH (09:13)
[2021-12-11 09:44] VITALS: BP 107/57; PULSE 86
[2021-12-11] MEDS ORDERED: ENOXAPARIN SODIUM SQ SCH (10:00)
== END 2021-12-11 09:55 | disposition home or self-care (01) | DRG 787 ==
LOC: OB 05:01 → OBSVTOIN 07:30 → OB 07:30
PROVIDERS: ADMIT Obstetrics & Gynecology; ATTEND Obstetrics & Gynecology
PROC: 10D00Z1 Extraction of Products of Conception, Low, Open Approach (ICD-10-PCS; principal; 2021-12-09)
DX: O10.92 Unspecified pre-existing hypertension complicating childbirth (principal); N39.0 Urinary tract infection, site not specified; O69.0XX0 Labor and delivery complicated by prolapse of cord, not applicable or unspecified; E11.9 Type 2 diabetes mellitus without complications; Z37.0 Single live birth; Z3A.38 38 weeks gestation of pregnancy; F32.A Depression, unspecified; Z86.16 Personal history of COVID-19
CPT/HCPCS: 36415; 59514; 62322; 64488; 76937; 76942; 80307; 81001; 82947; 84112; 85025; 85610; 85730; 86850; 86900; 86901; 87086; 87340; 94799; 99000; 99140; G0378; J0171; J0290; J0690; J0696; J1100; J1650; J2175; J2250; J2274; J2300; J2370; J2405; J2590; J2795; J3010; L0625; A9270-GY